=== PATIENT | female | born 1995 | race Caucasian/White ===

== ENCOUNTER 2017-12-05 08:02 | Emergency (ER) | payer BC ==
[2017-12-05 08:25] VITALS: BP 145/91
--- NOTE | 2017-12-05 08:31 | UC ---
Upper Extremity HPI - HPI Summary HPI Summary: patient hit the left forearm on a table hard enough to break the skin, she has had increased pain, and numbness of the left hand - History of Current Complaint Chief Complaint: UCUpperExtremity Stated Complaint: LEFT ARM Time Seen by Provider: 12/05/17 08:25 Hx Obtained From: Patient Hx Last Menstrual Period: last week ?: No Onset/Duration: Sudden Onset Severity Initially: Mild Severity Currently: Moderate Pain Intensity: 5 Location Of Pain: Is Diffuse - left forearm Aggravating Factor(s): Movement Alleviating Factor(s): Nothing Associated Signs And Symptoms: Positive: Numbness/Tingling - Allergies/Home Medications Allergies/Adverse Reactions: Allergies Allergy/AdvReac Type Severity Reaction Status Date / Time No Known Allergies Allergy Verified 12/05/17 08:19 PMH/Surg Hx/FS Hx/Imm Hx Previously Healthy: Yes - Surgical History Surgical History: Yes Surgery Procedure, Year, and Place: wisdom teeth - Family History Known Family History: Negative: Cardiac Disease, Hypertension - Social History Alcohol Use: None Substance Use Type: None Smoking Status (MU): Never Smoked Tobacco - Immunization History Vaccination Up to Date: Yes Review of Systems Constitutional: Negative Skin: Negative Eyes: Negative ENT: Negative Respiratory: Negative Cardiovascular: Negative Gastrointestinal: Negative Genitourinary: Negative Motor: Negative Neurovascular: Negative Musculoskeletal: Arthralgia, Decreased ROM Neurological: Negative Psychological: Negative Is Patient Immunocompromised?: No All Other Systems Reviewed And Are Negative: Yes Physical Exam Triage Information Reviewed: Yes Appearance: Well-Appearing, Well-Nourished, Pain Distress Vital Signs: Initial Vital Signs Temp 99.4 F 12/05/17 08:21 Pulse 95 12/05/17 08:21 Resp 22 12/05/17 08:21 BP 145/91 12/05/17 08:21 Pulse Ox 100 12/05/17 08:21 Vital Signs Reviewed: Yes Eye Exam: Normal ENT Exam: Normal Dental Exam: Normal Neck exam: Normal Respiratory Exam: Normal Respiratory: Positive: Chest non-tender, Lungs clear, Normal breath sounds Cardiovascular Exam: Normal Cardiovascular: Positive: RRR, No Murmur, Pulses Normal Abdominal Exam: Normal Abdomen Description: Positive: Nontender, No Organomegaly, Soft Bowel Sounds: Positive: Present Musculoskeletal: Positive: No Edema, 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 educated on contusion management, warm soaks and heat to increase mobility, continue with her Motrin for pain. - Differential Dx/Diagnosis Differential Diagnosis/HQI/PQRI: Contusion, Fracture (Closed), Strain, Sprain Provider Diagnoses: left forarm contusion Discharge - Discharge Plan Condition: Stable Disposition: HOME Patient Education Materials: Contusion in Adults (ED) Referrals: No Primary Care Phys,NOPCP [Primary Care Provider] - Additional Instructions: 1. soak your forearm 2-3 times a day in warm water, work your fingers and wrist through the range of motion we talked about, open and close fingers, flex and extend your wrist. and turn wrist up and down while soaking in the water.
--- NOTE | 2017-12-05 08:57 | RAD ---
HISTORY: Subacute trauma, left forearm pain COMPARISONS: None VIEWS: 2, Frontal and lateral views of the left forearm FINDINGS: BONE DENSITY: Normal. BONES: There is no displaced fracture. JOINTS: There is no arthropathy. ALIGNMENT: There is no dislocation. SOFT TISSUES: Unremarkable. OTHER FINDINGS: None. IMPRESSION: NO ACUTE OSSEOUS INJURY. IF SYMPTOMS PERSIST, RECOMMEND REPEAT IMAGING.
== END 2017-12-05 09:05 | disposition home or self-care (01) ==
LOC: UCCORT 08:02
DX: S50.12XA Contusion of left forearm, initial encounter (principal); W22.8XXA Striking against or struck by other objects, initial encounter; Y93.9 Activity, unspecified; Y92.9 Unspecified place or not applicable
CPT/HCPCS: 99211; G0463

== ENCOUNTER 2018-06-22 07:04 | Emergency (ER) | payer BC ==
--- NOTE | 2018-06-22 07:49 | UC ---
Lower Extremity/Ankle HPI - HPI Summary HPI Summary: 22-year-old woman who comes to clinic today with a chief complaint of right foot pain. She woke with pain in the bottom of her foot under the first metatarsal 2 days ago. She had been hiking the day before but had no pain the day before. The pain is worse with activity. It is better when she does not weight-bear. She has not taken any ibuprofen. No prior foot injuries no skin injury. The ankle does not hurt. No new shoes. - History of Current Complaint Stated Complaint: RIGHT FOOT COMPLAINT Time Seen by Provider: 06/22/18 07:38 Hx Last Menstrual Period: last week - Allergies/Home Medications Allergies/Adverse Reactions: Allergies Allergy/AdvReac Type Severity Reaction Status Date / Time No Known Allergies Allergy Verified 06/22/18 07:56 PMH/Surg Hx/FS Hx/Imm Hx Previously Healthy: Yes - Surgical History Surgical History: Yes Surgery Procedure, Year, and Place: wisdom teeth - Family History Known Family History: Negative: Cardiac Disease, Hypertension, Diabetes - Social History Alcohol Use: None Substance Use Type: None Smoking Status (MU): Never Smoked Tobacco - Immunization History Vaccination Up to Date: Yes Review of Systems Constitutional: Negative Skin: Negative Eyes: Negative ENT: Negative Respiratory: Negative Cardiovascular: Negative Gastrointestinal: Negative Motor: Negative Neurovascular: Negative Musculoskeletal: Other: - CHPI Neurological: Negative Psychological: Negative Is Patient Immunocompromised?: No All Other Systems Reviewed And Are Negative: Yes Physical Exam Triage Information Reviewed: Yes Appearance: Well-Appearing, No Pain Distress Vital Signs Reviewed: Yes ENT Exam: Normal Neck exam: Normal Neck: Positive: Supple Respiratory: Positive: No respiratory distress Musculoskeletal: Positive: Other: - Patient is tender to palpation on the plantar aspect of the distal right first metatarsal. The ankle is nontender. Achilles tendon is nontender. Toes full range of motion. There is some ecchymotic discoloration in the first mCP joint. Neurological Exam: Normal Neurological: Positive: Alert Psychological Exam: Normal Skin Exam: Normal Lower Extremity Course/Dx - Course Course Of Treatment: Order Information: FOOT RIGHT 3+ VWS. Accession Number: [id number]. CPT: 01900. Indication: Right foot pain. 3 views of the right foot demonstrates no fracture or dislocation. No other bone or joint. abnormality is noted. IMPRESSION: No fracture of the right foot is noted. ____ . <Electronically signed by Daja Uribe MD in [place]> 06/22/18 9782. Discussed the results of the x- ray with the patient and her mother. At this time recommending arch supports for possible plantar fasciitis certainly a tendinitis or a bone bruise. Icing it anti-inflammatories minimizing weightbearing patient declines crutches here. Follow-up with primary care doctor if not improved recheck sooner if worse - Differential Dx/Diagnosis Provider Diagnoses: RIGHT FOOT PAIN Discharge - Sign-Out/Discharge Documenting (check all that apply): Patient Departure All imaging exams completed and their final reports reviewed: Yes - Discharge Plan Condition: Stable Disposition: HOME Patient Education Materials: Plantar Fasciitis (ED), Plantar Fasciitis Exercises (GEN) Referrals: [facility] [Outside] Additional Instructions: FOLLOW UP WITH YOUR DOCTOR IF NOT COMPLETELY IMPROVED. GET RECHECKED FOR ANY WORSENING OF YOUR CONDITION OR QUESTIONS OR CONCERNS. - Billing Disposition and Condition Condition: STABLE Disposition: Home - Attestation Statements Document Initiated by Jed: No
[2018-06-22 07:58] VITALS: BP 121/69
--- NOTE | 2018-06-22 08:29 | RAD ---
Indication: Right foot pain. 3 views of the right foot demonstrates no fracture or dislocation. No other bone or joint abnormality is noted. IMPRESSION: No fracture of the right foot is noted.
== END 2018-06-22 09:01 | disposition home or self-care (01) ==
LOC: UCCORT 07:04
DX: M79.671 Pain in right foot (principal)
CPT/HCPCS: 99212; G0463